=== PATIENT | male | born 1985 | race Caucasian/White ===

== ENCOUNTER → 2017-02-06 | Outpatient (CLI) | payer OTHER ==
[~2017-02-06] MED LIST: NONE PER PT
[2017-02-06 08:46] LABS: ASPARTATE AMINO TRANSFERASE 23 U/L (15-37); BLOOD UREA NITROGEN 13 mg/dL (7-18)
== END | disposition home or self-care (01) ==
LOC: LAB 08:16
PROVIDERS: ATTEND Nurse Practitioner Family
DX: Z00.00 Encounter for general adult medical examination without abnormal findings (principal); Z13.9 Encounter for screening, unspecified
CPT/HCPCS: 36415; 80053; 80061; 81292; 81295; 81298; 81317; 82306; 84402; 84403; 84439; 84443; 85025

== ENCOUNTER → 2017-06-19 | Outpatient (CLI) | payer OTHER ==
[2017-06-21 21:05] LABS: TESTOSTERONE FREE DIRECT 9.1 pg/mL (8.7-25.1)
== END | disposition home or self-care (01) ==
LOC: LAB 10:43
PROVIDERS: ATTEND Family Medicine
DX: E29.1 Testicular hypofunction (principal); R73.02 Impaired glucose tolerance (oral)
CPT/HCPCS: 36415; 83036; 84402; 84403